=== PATIENT | male | born 1965 | race Caucasian/White ===

== ENCOUNTER 2019-07-04 08:28 | Emergency (ER) | payer MEDICAID, SELFPAY ==
[2019-07-04 08:29] VITALS: BP 109/72; PULSE 81; RESP 18; TEMP 36.6; O2SAT 98; BMI 30.4
--- NOTE | 2019-07-04 08:49 | CT_ITS ---
STUDY: CT ABDOMEN AND PELVIS WITHOUT CONTRAST REASON FOR EXAM: Male, 53 years old. Umbilical pain with nausea and vomiting. RADIATION DOSAGE (If Supplied By Facility): CTDIvol = ( 12.22 ) mGy, DLP = ( 653.24 ) mGycm TECHNIQUE: Transaxial images were obtained from the dome of the diaphragm to the symphysis pubis without oral contrast, and without intravenous contrast. Sagittal and coronal images were reconstructed. Individualized dose optimization techniques were used for this CT. COMPARISON: None. FINDINGS: Minimal degree of increased signal markings at the lung bases suggestive of linear atelectasis and/or scarring. The visualized portions of the heart are within normal limits. Normal liver. I suspect tiny gallstones within the gallbladder lumen. Normal spleen. Normal pancreas. Normal bilateral adrenal glands. Normal right kidney. Normal left kidney. There is a small hiatal hernia. Normal small intestine. Normal colon. The appendix is visualized and appears normal. Normal abdominal aorta. Normal inferior vena cava. There is borderline retroperitoneal lymphadenopathy with enlarged nodes no greater than 10mm in the short axis diameter. Normal urinary bladder. There are prostatic calcifications. There is a small umbilical hernia containing fat. Small bilateral inguinal hernias containing fat. Normal osseous structures. CT/Abdomen/Pelvis without Cont IMPRESSION: I suspect tiny gallstones in the gallbladder lumen. Minimal linear atelectasis and/or scarring at the lung bases. Electronically Signed: Eros Moore, at 9:38 EST , Service support ,
--- NOTE | 2019-07-04 08:52 | ED.VIS.GEN ---
History of Present Illness Chief Complaint: Abd Pain Informant: Patient Onset: Yesterday Current Severity: Mild Maximum Severity: Moderate Narrative: Patient presents with left lower quadrant abdominal pain since yesterday he had one episode of vomiting yesterday but no diarrhea or constipation. He denies any testicle pain or radiation to his testicle he has no hematuria or dysuria he has no flank pain although the pain is on the left side of the abdomen as well as left lower quadrant. He has no upper abdominal pain he has no epigastric pain he has no lower right abdominal pain or right upper abdominal pain. He denies chest pain or shortness of breath. He has no other symptoms. Pain is now mild but yesterday it was moderate to severe and he had one episode this morning where he was moderate to severe. It is achy Past Medical History - Allergies and Home Meds Allergies/Adverse Reactions: Allergies Penicillins Allergy (Verified 07/04/19 08:31) Unknown Sulfa (Sulfonamide Antibiotics) Allergy (Verified 07/04/19 08:31) Unknown Primary Care Physician: Care Physician,No Primary [Primary Care Provider] - Past Medical History: None Smoking Status: Unknown if ever smoked Review of Systems All systems negative except as indicated General: Denies: Fever Cardiovascular: Denies: Chest pain, Palpitations Respiratory: Denies: Dyspnea, Cough Gastrointestinal: Reports: Abdominal pain, Nausea, Vomiting. Denies: Diarrhea, Constipation, Melena Genitourinary: Denies: Dysuria, Hematuria, Frequency Musculoskeletal: Denies: Myalgias, Back pain Skin: Denies: Rash Neurological: Denies: Weakness, Parasthesia Endocrine: Denies: Polyuria Hematologic: Denies: Easy bruising Physical Exam Vital Signs/Narrative: Vital Signs Temp Pulse Resp BP Pulse Ox 07/04/19 08:29 98 F 81 18 109/72 98 General: - - He appears relatively comfortable in bed Head: Normocephalic, Atraumatic ENT: Moist mucous membranes Cardiovascular: Regular rate, Regular rhythm Respiratory: No distress, CTA bilaterally Abdomen: - - Soft, minimal left lower quadrant abdominal tenderness. There is no guarding or rebound. There is no upper abdominal pain no right lower or right upper quadrant pain. There is a small umbilical hernia which is reducible, however there is some fat present, minimally tender, there is no CVA tenderness. : - - No groin tenderness no testicular tenderness Back: Nontender. Negative for: CVA tenderness Extremities: Nontender, No edema Skin: Normal color Neurological: Alert Diagnostic/Tx/Re-eval - Medical Decision Making Patient has a normal ED work-up he has chronic inguinal hernias, umbilical hernia containing fat and hiatal hernia. Otherwise he has an unremarkable exam, he tells me his pain is worse with coughing and is been coughing quite a bit due to an upper respiratory illness that he is now getting over, I believe he may have an abdominal wall strain he has a completely normal exam otherwise he is stable for discharge I will give him an abdominal binder. Discharge stable condition ED Disposition - Plan for ED Patient: Disposition: Home or Assisted Living Diagnosis: Patient in stable condition at discharge, Abdominal pain Instructions: ABDOMINAL PAIN, Unkown Cause, (Male) Referrals: Care Physician,No Primary [Primary Care Provider] - 3-5 Days
[2019-07-04] MEDS: 0.9% Normal Saline 1,000 ML 1000 ML IV (09:00)
[2019-07-04] MEDS: Ondansetron 4 MG/2 ML Vial IV (09:05)
[2019-07-04 09:07] LABS: Absolute Lymphocyte Count 1.35 X10^3/uL (0.83-4.51); Absolute Neutrophil Count 7.7 X10^3/uL (2.0-7.7); Basophil# 0.04 X10^3/uL; Basophil% 0.4 % (0-1); Eosinophil# 0.05 X10^3/uL; Eosinophils% 0.5 % (0-5); Hematocrit 49.7 % (40-54); Hemoglobin 16.8 g/dL (13.0-16.5); Lymphocyte # 1.35 X10^3/ul (4.0); Lymphocyte % 14.2 % (19-41); Mean Corp Hgb Conc 33.8 g/dL (32-36); Mean Corpuscular Hgb 31.2 pg (27.0-32.0); Mean Corpuscular Volume 92.2 fL (80-94); Mean Platelet Vol. 8.8 fl (6.2-12.0); Monocyte# 0.34 X10^3/uL; Monocyte% 3.6 % (0-10); NRBC Flagged by Analyzer 0 % (0-5); Neutrophil # 7.71 X10^3/uL (2.7-7.7); Platelet Count 245 K/mm3 (150-450); RBC Distribution Width CV 11.6 % (11.6-14.6); RBC Distribution Width SD 39.2 fl (35.1-43.9); Red Blood Count 5.39 M/mm3 (4.6-6.2); White Blood Count 9.5 K/mm3 (4.4-11.0)
[2019-07-04 09:12] LABS: Red Blood Cells-Urine 0 SEEN /hpf (0-5); White Blood Cells 0 SEEN /hpf (0-5)
[2019-07-04 09:14] LABS: Color, Urine Yellow (Yellow); Glucose, Dipstick Normal (Normal); Ketone-Dipstick 5 mg/dl (Negative); Leukocyte Esterase-Dipstick Negative /ul (Negative); Nitrite-Dipstick Negative (Negative); Occult Blood-Urine Negative /ul (Negative); Protein-Dipstick Negative (Negative); Specific Gravity, Urine 1.025 (1.002-1.030); Urine Bilirubin Dipstick Negative (Negative); Urine Clarity Sl. Cloudy (Clear); Urine Urobilinogen Normal (Normal)
[2019-07-04 09:20] LABS: Squamous Epithelial Cells - UA 0-5 SEEN /hpf (0-5)
[2019-07-04 09:21] LABS: Mucous, Urine 3+ /hpf (<or=2+)
[2019-07-04 09:22] LABS: Bacteria RARE /hpf (None Seen)
[2019-07-04 09:23] LABS: AST(SGOT) 18 U/L (15-37); Alanine Aminotransfer ALT/SGPT 37 U/L (16-61); Albumin, Serum 3.7 g/dL (3.2-5.0); Alkaline Phosphatase 85 U/L (45-117); Anion Gap 5 (5-15); BUN 11 mg/dL (7-18); BUN/Creat Ratio 13.1 RATIO (10-20); Calcium,Total 8.9 mg/dL (8.5-10.1); Chloride 107 mmol/L (98-107); Creatinine, Serum 0.84 mg/dL (0.70-1.30); EST Glomerular Filtration Rate 101 mL/min (>60); Est Glom Filt Rate - Afr Amer 123 mL/min (>60); Estimated Creatinine Clearance 97.26 ml/min; Globulin 3.7 g/dL (2.2-4.2); Glucose 134 mg/dL (74-106); Lipase 70 U/L (73-393); Protein, Total 7.4 g/dL (6.4-8.2); Sodium Level 140 mmol/L (136-145)
[2019-07-04 10:12] VITALS: BP 106/67; PULSE 84; RESP 18
== END 2019-07-04 10:17 | disposition home or self-care (01) ==
PROVIDERS: Emergency Provider Emergency Medicine
DX: R10.30 Lower abdominal pain, unspecified (principal); Z88.0 Allergy status to penicillin; Z88.2 Allergy status to sulfonamides; K42.9 Umbilical hernia without obstruction or gangrene
CPT/HCPCS: 74176; 80053; 81001; 83690; 85025; 96361; 96374; 99284; J7030; J2405

== ENCOUNTER → 2019-07-22 09:09 | Outpatient (CLI) | payer MEDICAID, SELFPAY ==
[2019-07-20 08:11] VITALS: BMI 30.4
--- NOTE | 2019-07-22 09:11 | US_ITS ---
STUDY: ABDOMINAL ULTRASOUND - RIGHT UPPER QUADRANT REASON FOR VISIT: Male, 53 years old abdominal pain. TECHNIQUE: Ultrasound evaluation of the right upper quadrant was performed with real-time and static johnson-scale imaging. TECHNICAL QUALITY: Limited. Examination limited by bowel gas. COMPARISON: CT dated 07/04/2019. FINDINGS: Liver: The liver measures 17.5 cm. There is increased echogenicity consistent with fatty infiltration. The bile ducts are within normal limits. There is hepatic color flow. The direction of portal flow is hepatopetal. There is no demonstrated mass lesion. Gallbladder: Normal distended gallbladder. The gallbladder wall measures 1.9 mm. There is a negative sonographic Parker's sign. There is no pericholecystic fluid. There are no gallstones. There is a small, echogenic, structure, nonshadowing along the posterior gallbladder wall measures 0.3 x 0.3 x 0.2 cm, nonmobile and most compatible with a polyp. Common Bile Duct (C.B.D.): The common bile duct measures 2.4 mm. Pancreas: There is nonvisualization of the pancreas. Right Kidney: Normal size of the right kidney. The right kidney measures 2.1 x 6.7 x 4.7 cm. Normal renal cortex. The right cortex measures 1.2 cm. There is no demonstrated renal mass or cyst. There is no right hydronephrosis. US/Gallbladder IMPRESSION: Small gallbladder polyp measuring 0.3 cm. No gallstones or signs of acute cholecystitis. Diffuse fatty liver. Nonvisualized pancreas, remainder of the right upper quadrant ultrasound unremarkable. Electronically Signed: Macey Patel MD at 22:16 EST , Service support ,
== END ==
PROVIDERS: Family Provider Nurse Practitioner Family; PCP Nurse Practitioner Family; Referring Provider Surgery; Visit Provider Surgery
DX: R93.5 Abnormal findings on diagnostic imaging of other abdominal regions, including retroperitoneum (principal)
CPT/HCPCS: 76705